=== PATIENT | male | born 1935 | race Caucasian/White ===

== ENCOUNTER 2022-06-13 11:24 | Outpatient (CLI) | payer MEDICARE, SELFPAY ==
[2022-06-13 21:55] LABS: Albumin* 4.2 g/dL (3.3-5.0)
[2022-06-13 21:56] LABS: Chloride* 106 mmol/L (96-114); Potassium* 4.7 mmol/L (3.6-5.1); Sodium* 141 mmol/L (135-149)
[2022-06-13 21:58] LABS: Aspartate Amino Transferase* 18 U/L (12-35); Carbon Dioxide* 28 mmol/L (20-32); Cholesterol* 146 mg/dL (90-199); Creatinine* 1.2 mg/dL (0.5-1.5); Estimated Glomerular Filt Rate 59 ml/min; Total Protein* 7.2 g/dL (6.0-8.3)
[2022-06-13 21:59] LABS: Alanine Aminotransferase* 29 U/L (4-50); Alkaline Phosphatase* 78 U/L (40-150); Blood Urea Nitrogen* 29 mg/dL (7-30); Calcium* 9.4 mg/dL (8.4-10.6); Glucose* 103 mg/dL (60-115); HDL Cholesterol* 52 mg/dL (>=40); LDL Cholesterol Calculated 76 mg/dL (<100); Triglycerides* 91 mg/dL (40-149)
[2022-06-13 22:21] LABS: PSA Screen* 5.68 ng/mL (0.10-4.00)
== END 2022-06-13 11:25 | disposition home or self-care (01) ==
PROVIDERS: PCP Family Medicine; Visit Provider Family Medicine
DX: I10 Essential (primary) hypertension (principal); E78.5 Hyperlipidemia, unspecified; I21.4 Non-ST elevation (NSTEMI) myocardial infarction; R41.3 Other amnesia; R42 Dizziness and giddiness
CPT/HCPCS: 80053; 80061; 84153; 84443

== ENCOUNTER 2022-09-05 10:59 | Outpatient (CLI) | payer MEDICARE, SELFPAY | END 2022-09-05 11:00 | disposition home or self-care (01) | LOC: LKVREF 11:01 | PROVIDERS: PCP Family Medicine; Visit Provider Family Medicine | DX: Z00.00 Encounter for general adult medical examination without abnormal findings (principal); R35.1 Nocturia; N40.1 Benign prostatic hyperplasia with lower urinary tract symptoms; R41.3 Other amnesia; R42 Dizziness and giddiness; M25.511 Pain in right shoulder | CPT/HCPCS: 82607; 87086; 87186 ==

== ENCOUNTER 2022-09-13 09:27 | Outpatient (CLI) | payer MEDICARE, SELFPAY ==
--- NOTE | 2022-09-13 10:15 | CRLHL7_ITS ---
For Patients: As a result of the Century Cures Act, medical imaging exams and procedure reports are released immediately into your electronic medical record. You may view this report before your referring provider. If you have questions, please contact your health care provider. Indication: Memory loss. Technique: Multiplanar, multisequence MRI of the brain was performed without intravenous contrast. Comparison: MR brain 06/21/2017. Findings: Moderate thinning of the corpus callosum. The pituitary gland and clivus appear intact. Mild to moderate degenerative change visualized upper cervical spine. No cerebellar tonsillar ectopia. There is no restricted diffusion. No intracranial hemorrhage. The ventricles are proportionate to the cerebral sulci. The 4th ventricle appears midline. The basal cisterns appear patent. No abnormal extra-axial fluid collection identified. Moderate parenchymal volume loss. Moderate hippocampal volume loss. 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 Stable encephalomalacia and gliosis along the left frontal lobe. There is slight increase in size in an extra-axial 1.6 x 4.1 x 1.0 cm (TR X AP X CC) T1 hyperintense lesion along the left frontal convexity. Lesion demonstrates T2 hyperintensity, with fat suppression on T2 fat-suppressed imaging. Lesion previously measured 1.4 x 3.3 x 0.7 cm when remeasured in a similar fashion. No edema within the adjacent brain parenchyma. Major intracranial vascular flow voids appear grossly intact. Thinning of the ocular lenses. Moderate paranasal sinus mucosal disease. Impression: 1. No acute/subacute infarct. 2. Stable left frontal encephalomalacia and gliosis which may relate to sequela of prior insult such as traumatic injury. 3. Stable moderate parenchymal volume loss with mild chronic ischemic microvascular disease. 4. Interval increase in size of extra-axial lesion along the left frontal convexity. 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 Dictated by Avery Gaspar MD @ 09/13/2022 11:04:56 AM (Electronically Signed)
== END 2022-09-13 09:28 | disposition home or self-care (01) ==
LOC: MRI 09:29
PROVIDERS: PCP Family Medicine; Visit Provider Family Medicine
DX: R41.3 Other amnesia (principal); G93.89 Other specified disorders of brain; S06.9XAA Unspecified intracranial injury with loss of consciousness status unknown, initial encounter
CPT/HCPCS: 70551

== ENCOUNTER 2022-09-13 10:44 | Emergency (ER) | payer MEDICARE, SELFPAY ==
[2022-09-13 11:12] VITALS: BP 122/68; PULSE 65; RESP 16; TEMP 36.4; O2SAT 97; BMI 25.1
--- NOTE | 2022-09-13 12:43 | ED.NURSE ---
Patients came to desk asking why he hasn't been seen yet. Explained to that we have a triage process and we we will see him as soon as we are able. Patients stated I will just bring him to [place] and he will be seen right away. Offered patient and his some food/water/coffee. stated No, if we are not seen by 1pm, we are going to leave and we will not be billed for this. Recommended patient and his sign the declination of services form to assure this won't happen. Patient was here earlier for an outpatient MRI and was told that that was separate from the ER visit.
== END 2022-09-13 13:20 | disposition left against medical advice (07) ==
PROVIDERS: Emergency Provider Family Medicine; PCP Family Medicine
DX: Z53.21 Procedure and treatment not carried out due to patient leaving prior to being seen by health care provider (principal)

== ENCOUNTER 2023-08-02 11:42 | Outpatient (CLI) | payer MEDICARE, SELFPAY | END 2023-08-02 11:43 | disposition home or self-care (01) | LOC: LKVREF 11:44 | PROVIDERS: PCP Family Medicine; Visit Provider Family Medicine | DX: R97.20 Elevated prostate specific antigen [PSA] (principal); E03.9 Hypothyroidism, unspecified; E78.2 Mixed hyperlipidemia | CPT/HCPCS: 80053; 80061; 84153; 84154; 84439; 84443 ==

== ENCOUNTER 2023-08-03 10:26 | Outpatient (CLI) | payer MEDICARE, SELFPAY | END 2023-08-03 10:27 | disposition home or self-care (01) | LOC: NFLDREF 08-08 12:33 | PROVIDERS: PCP Family Medicine; Referring Provider Family Medicine; Visit Provider Family Medicine | DX: E87.5 Hyperkalemia (principal) | CPT/HCPCS: 84132 ==

== ENCOUNTER 2023-10-11 13:46 | Outpatient (CLI) | payer MEDICARE, SELFPAY | END 2023-10-11 13:47 | disposition home or self-care (01) | PROVIDERS: PCP Family Medicine; Visit Provider Family Medicine | DX: R53.83 Other fatigue (principal); I10 Essential (primary) hypertension; R42 Dizziness and giddiness; G25.81 Restless legs syndrome; Z95.5 Presence of coronary angioplasty implant and graft | CPT/HCPCS: 82306; 83735; 84439; 84443 ==

== ENCOUNTER 2023-12-10 13:02 | Outpatient (RCR) | payer MEDICARE, SELFPAY ==
--- NOTE | 2023-12-10 15:44 | PT.OPE ---
PT [facility] Eval [facility] Outpatient Eval Start: 11/27/23 09:46 Freq: Status: Active Protocol: Document 12/10/23 15:42 CHANTELT (Rec: 12/10/23 15:43 CHANTELT [id number]) E-signed By Taj Valadez PT Physical Therapy Outpatient Evaluation Insurance Information Recert Due Date 03/09/24 Insurance Name Medicare B Medical Diagnosis Unsteadiness on feet Treating Diagnosis Unsteadiness on feet History of falls Hip pain Referring Robert Oseguera MD Subjective Preferred Name Evens Subjective When I walk 200-300 feet I get such a back ache that I can hardly move and the pain goes down my legs. The pain is in his B buttock and hamstrings. Rest relieves the pain. Pain usually resolves in a few minutes but starts up again when he begins to walk. This has been ongoing for past 6 months. He describes the pas as an ache. Also notes that he feels weak in the bottoms of his feet. Pt reports somewhere between 5-10 falls in the past year. Pt reports that he fell last Sunday. He was watering the garden and he tripped and fell and couldn't get up. A neighbor came and helped him get up. Pt reports he does not remember exactly how he fell and notes he was so weak that he could not help himself up. He is a bit afraid of falling. Pt also notes that he does not like to go on stairs anymore. He has 13 stairs in his home with handrails on both sides. There is a step down tot the living room. 13 steps down tot basement. Pt goes down there to shower. Laundry is also in the basement. Date of Last Physician Visit 11/16/23 Current Work Status Retired Precautions Treatment Precautions/Contraindications Ankle pain, left (Acute) M25.572 - Pain in left ankle and joints of left foot (ICD- 10) UTI (urinary tract infection) (Acute) N39.0 - Urinary tract infection, site not specified (ICD-10) Head trauma (Acute) S09.90XA - Unspecified injury of head, initial encounter ( ICD-10) BPH associated with nocturia ( Acute) N40.1 - Benign prostatic hyperplasia with lower urinary tract symptoms (ICD-10) R35.1 - Nocturia (ICD-10) Unstable gait (Acute) R26.81 - Unsteadiness on feet (ICD-10) Shoulder pain, bilateral ( Acute) M25.511 - Pain in right shoulder (ICD-10) M25.512 - Pain in left shoulder (ICD-10) 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) S06.9XAA - Unspecified intracranial injury with loss of consciousness status unknown, initial encounter ( ICD-10) Tear of biceps tendon (Acute 02/19/12) S46.219A - Strain of muscle, fascia and tendon of other parts of biceps, unspecified arm, initial encounter (ICD-10 ) Restless legs syndrome (Acute) G25.81 - Restless legs syndrome (ICD-10) Presence of stent in coronary artery (Acute) Z95.5 - Presence of coronary angioplasty implant and graft (ICD-10) Orthostatic lightheadedness ( Acute) R42 - Dizziness and giddiness (ICD-10) Non-ST elevation (NSTEMI) myocardial infarction (Acute) I21.4 - Non-ST elevation ( NSTEMI) myocardial infarction (ICD-10) Memory loss (Acute) R41.3 - Other amnesia (ICD-10) Left shoulder pain (Acute) M25.512 - Pain in left shoulder (ICD-10) Hypertension (Acute 02/19/12) I10 - Essential (primary) hypertension (ICD-10) Hyperlipidemia (Acute) E78.5 - Hyperlipidemia, unspecified (ICD-10) Hiatal hernia (Acute) K44.9 - Diaphragmatic hernia without obstruction or gangrene (ICD-10) Gastroesophageal reflux disease (Acute 02/19/12) K21.9 - Gastro-esophageal reflux disease without esophagitis (ICD-10) Fracture of patella (Acute) S82.009A - Unspecified fracture of unspecified patella, initial encounter for closed fracture (ICD-10) Fatigue due to sleep pattern disturbance (Acute) R53.83 - Other fatigue (ICD-10 ) G47.9 - Sleep disorder, unspecified (ICD-10) Fatigue (Acute) R53.83 - Other fatigue (ICD-10 ) Fall (Acute) W19.XXXA - Unspecified fall, initial encounter (ICD-10) Elevated prostate specific antigen (PSA) (Acute 02/19/12) R97.20 - Elevated prostate specific antigen [PSA] (ICD-10 ) Coronary artery disease (Acute ) I25.10 - Atherosclerotic heart disease of [place] coronary artery without angina pectoris (ICD-10) Constipation (Acute) K59.00 - Constipation, unspecified (ICD-10) Bruises easily (Acute) R23.3 - Spontaneous ecchymoses (ICD-10) Anxiety with depression (Acute ) F41.8 - Other specified anxiety disorders (ICD-10) Anemia (Acute) D64.9 - Anemia, unspecified ( ICD-10) Actinic keratosis (Acute) L57.0 - Actinic keratosis (ICD -10) Hypothyroidism (Acute) E03.9 - Hypothyroidism, unspecified (ICD-10) Therapy Limitations/Systems Review Not Limited Objective Other/Pertinent Objective R knee flexion: 5/5 MMT R knee extension: 5/5 MMT L knee flexion: 5/5 MMT L knee extension: 5/5 MMT R ankle DF: 4/5 MMT L ankle DF: 3+/5 MMT 4-Stage Balance Test: unable to perform stages II-IV mCTSIB: unable to perform stages II-IV TU.0 seconds 5 Times Mot-yd-Hospz: unable, pt completes 2 30-Second Ppr-mf-Dtgds: 2 Assessment Assessment/Impression Evens is a very pleasant 88 year old male who presents to our clinic for evaluation and treatment of unsteadiness on feet. Pts subjective information of muscle aching along posterior chain indicates quick muscle fatigue in glutes and hamstrings. This was quickly repeated while walking short distances in our clinic today, however strength of hamstrings did test full. Pt has significant functional strength and balance deficits that do put him at an increased risk for falls (see objective). Pt may also benefit from cognitive assessment with OT as he struggled to follow directions and answer questions throughout today's evaluation. The nature of the pts condition was explained and all questions were answered to the pts satisfaction. Skilled PT services are medically necessary to address deficits and return patient to highest level of function. Recommend physical therapy sessions 1-2/ week for 4-8 weeks. Pt agrees with this plan. Printout of HEP was given for I completion and pt gives verbal understanding of each exercise . Primary Functional Limitations Walking, transfers, bed mobility Plan of Care Rehabilitation Potential Fair Physical Therapy Goals STG - To be completed in 4 weeks: 1. Pt will demo ability to perform at least 5 sit-to- stands without falling backwards as indication of improved balance and functional strength to reduce risk of falls. 2. Pt will demo ability to ambulate for 6 minutes without onset of glute and hamstring pain so that he may go for walks for light level exercise . LTG - To be completed in 8 weeks: 1. Patient will improve 5 Times Onb-fy-Xumuj time to 12 seconds or less to show decreased risk of falls and improved functional strength and endurance for transfers. 2. Patient will ambulate with improved stride length and arm swing to allow for ease of ambulation and reduce risk of falls with mobility. 3. Pt will stand fully erect with reduced hip, knee, and trunk flexion to restore his center of gravity and reduce risk of falls. Treatment Plan/Direct Interventions Manual Therapy,Neuromuscular Re-ed,Self-Care/Home Management,Therapeutic Activities,Therapeutic Exercises Frequency/Duration 1-2/week for 4-8 weeks Patient Will Be Discharged From Therapy Completion of LTG(s),Skills Plateau,Independent w/HEP, Independently Progressing Evaluation Billing Untimed Code Treatment Minutes 44 PT Eval No Charge No Complexity Low Certification Information Initial Certification Date 12/10/23 Ending Certification Date 03/09/24 Provider Signature Required Yes Provider Signature Shows Agreement With POC & Medical Necessity Physician NPI Number Write NPI# Here Physician Comment/Change : Physician Signature & Date Requested Please Sign/Date Here
== END 2024-01-01 11:36 | disposition home or self-care (01) ==
PROVIDERS: PCP Family Medicine; Visit Provider Family Medicine
DX: R26.81 Unsteadiness on feet (principal); W19.XXXA Unspecified fall, initial encounter; M25.559 Pain in unspecified hip; Z91.81 History of falling; Z51.89 Encounter for other specified aftercare
CPT/HCPCS: 84443; 87086; 97110; 97161

== ENCOUNTER 2024-02-07 11:52 | Outpatient (CLI) | payer MEDICARE, SELFPAY ==
[2024-02-07 12:33] LABS: Appearance Urine Clear (Clear); Bilirubin Urine Negative (Negative); Blood Urine Negative (Negative); Color Urine Amber (Yellow); Glucose Urine Negative (Negative); Ketones Urine Negative (Negative); Leukocyte Esterase Urine 1+ (Negative); Nitrite Urine Negative (Negative); Protein Urine Negative (Negative); Specific Gravity Urine 1.025 (1.000-1.030)
[2024-02-07 13:01] LABS: Bacteria Urine Moderate; Fine Granular Casts Urine Few; RBC Urine 0-2 (0-2); Squamous Epithelial Cell Urine Few (None-Few)
[2024-02-07 13:02] LABS: Basophils Absolute Auto 0.02 K/uL (0.00-0.30); Basophils Percent Auto 0.4 % (0.0-3.0); Eosinophils Absolute Auto 0.14 K/uL (0.00-0.50); Eosinophils Percent Auto 2.7 % (0.0-7.0); Hematocrit 42.2 % (37.0-53.0); Hemoglobin* 13.6 gm/dL (13.5-17.5); Immature Granulocytes Abs Auto 0.01 K/uL (0.00-0.30); Immature Granulocytes Pct Auto 0.2 %; Lymphocytes Percent Auto 19.3 % (20-44); Mean Corpuscular HGB Conc 32 gm/dL (32-36); Mean Corpuscular Hemoglobin 33 pg (26-34); Mean Corpuscular Volume 101 fL (80-100); Monocytes Percent Auto 12.7 % (0.0-11.0); Neutrophils Absolute Auto 3.42 K/uL (1.7-7.0); Neutrophils Percent Auto 64.7 % (42.0-72.0); Platelet Count* 170 K/uL (140-440); RDW Coefficient of Variation % 12.8 % (11.5-15.5); Red Blood Count 4.18 m/uL (4.30-5.90); White Blood Count* 5.28 K/uL (4.50-11.00)
[2024-02-07 13:15] LABS: Slide Review Reflex No
[2024-02-07 22:05] LABS: Chloride* 102 mmol/L (96-114); Sodium* 137 mmol/L (135-149)
[2024-02-07 22:08] LABS: Creatinine* 1.6 mg/dL (0.5-1.5); Estimated Glomerular Filt Rate 41 ml/min
[2024-02-07 22:09] LABS: Anion Gap 6 mEq/L (7-15); Blood Urea Nitrogen* 34 mg/dL (7-30); Calcium* 9.3 mg/dL (8.4-10.6); Carbon Dioxide* 29 mmol/L (20-32); Glucose* 96 mg/dL (60-115)
== END 2024-02-07 11:53 | disposition home or self-care (01) ==
LOC: LKVREF 11:56
PROVIDERS: PCP Family Medicine; Visit Provider Family Medicine
DX: N40.1 Benign prostatic hyperplasia with lower urinary tract symptoms (principal); R35.1 Nocturia; I10 Essential (primary) hypertension; D64.9 Anemia, unspecified; R82.90 Unspecified abnormal findings in urine
CPT/HCPCS: 80048; 81001; 81003; 85025; 87086

== ENCOUNTER 2024-10-23 16:18 | Outpatient (CLI) | payer MEDICARE, SELFPAY | END 2024-10-23 16:19 | disposition home or self-care (01) | LOC: NFLDREF 10-27 18:43 | PROVIDERS: PCP Family Medicine; Referring Provider Family Medicine; Visit Provider Family Medicine | DX: N40.1 Benign prostatic hyperplasia with lower urinary tract symptoms (principal); R35.1 Nocturia; R53.83 Other fatigue; R55 Syncope and collapse; I25.10 Atherosclerotic heart disease of native coronary artery without angina pectoris; R97.20 Elevated prostate specific antigen [PSA]; R82.90 Unspecified abnormal findings in urine; Z12.5 Encounter for screening for malignant neoplasm of prostate | CPT/HCPCS: 80053; 80061; 84443; 87086; G0103 ==